=== PATIENT | female | born 1960 | race Two or more races ===

== ENCOUNTER → 2016-07-12 | Day surgery (SDC) | payer SELFPAY ==
[~2016-07-12] MED LIST: LEVAQUIN500 MG PO; PERCOCET 5-3251 EACH PO
--- NOTE | ~2016-07-12 | ER ---
PATIENT'S NAME: KATHERIN [facility]RIAN [facility] AGE: 56 Y [address] ROOM: [place] [address] LOCATION: [facility] ADMIT DATE: 07/12/2016 ER/Outpatient Report DISCHARGE DATE: FAMILY PHYSICIAN: PHYSICIAN, NO ATTENDING PHYSICIAN: Jason Varela Time of Arrival: 2103 hours. Time of Evaluation: 2103 hours. CHIEF COMPLAINT: Finger laceration. HISTORY OF PRESENT ILLNESS: The patient reports through the per diem interpreter that approximately 20 minutes prior to arrival, she was cutting meat with a kitchen knife. The knife slipped, and she cut her right middle finger. Denies any other injury. ALLERGIES: SHE HAS NO KNOWN ALLERGIES. MEDICATIONS: No current medications. PAST MEDICAL HISTORY: Hypercholesterol, but she is not being treated with any medicine for it at this time. PAST SURGICAL HISTORY: . SOCIAL HISTORY: Denies use of drugs, alcohol, or tobacco. States her last tetanus shot was 7 years ago. REVIEW OF SYSTEMS: All negative other than those mentioned in the HPI. PHYSICAL EXAMINATION: VITAL SIGNS: She weights 67.7 kg, blood pressure is 134/118 initially, pulse of 93, respirations 16, temperature of 98.7, O2 sats 94% on room air. GENERAL: She is awake, alert, and oriented x4. SKIN: [place], warm, and dry. RESPIRATIONS: Even and nonlabored. EXTREMITIES: The patient has a large laceration of the right middle finger, that extends from the top part of the finger down through the nail and down to PATIENT'S NAME: KATHERIN BRIAN [facility] AGE: 56 Y [address] ROOM: [place] [address] LOCATION: [facility] ADMIT DATE: 07/12/2016 ER/Outpatient Report DISCHARGE DATE: FAMILY PHYSICIAN: PHYSICIAN, NO ATTENDING PHYSICIAN: Jason Varela the palmar side of the finger. It was wrapped with gauze. EMERGENCY DEPARTMENT COURSE: She was taken to x-ray. She has an open fracture of the middle finger, distal phalanx. Saline lock was initiated. She was given Zofran 4 mg IV and fentanyl 50 mcg IV. Tetanus was updated. She was given a gram of Ancef IV. Dr. Varela was contacted regarding the patient. He did come and evaluate the patient. IMPRESSION: Open fracture of the right middle finger, distal phalanx. PLAN: The patient is to go to the OR for repair and continuation of care by Dr. Varela. The patient is able to verbalize understanding. CEDRIC GARRISON APRN FOR [facility]/joby /[id number] d: 07/13/16 0157 t: 07/16/16 1919, OUTPATIENT REPORT
== END | disposition disaster alternative care site (69) ==
LOC: GMED 21:01 → GSDC 21:59
PROC: 0JDJ0ZZ Extraction of Right Hand Subcutaneous Tissue and Fascia, Open Approach (ICD-10-PCS; principal; 2016-07-12)
PROC: 0PST04Z Reposition Right Finger Phalanx with Internal Fixation Device, Open Approach (ICD-10-PCS; 2016-07-12)
PROC: 0HQQXZZ Repair Finger Nail, External Approach (ICD-10-PCS; 2016-07-12)
DX: S62.632B Displaced fracture of distal phalanx of right middle finger, initial encounter for open fracture (principal); S61.312A Laceration without foreign body of right middle finger with damage to nail, initial encounter; E78.00 Pure hypercholesterolemia, unspecified; Z98.890 Other specified postprocedural states; W45.8XXA Other foreign body or object entering through skin, initial encounter; Y93.G3 Activity, cooking and baking; W26.0XXA Contact with knife, initial encounter
CPT/HCPCS: J0690; J2405; J3010